=== PATIENT | male | born 1980 | race Caucasian/White ===

== ENCOUNTER 2023-01-23 10:10 | Outpatient (CLI) | payer OTHER, SELFPAY | END 2023-01-23 10:11 | disposition home or self-care (01) | PROVIDERS: PCP Family Medicine; Visit Provider Family Medicine | DX: R10.9 Unspecified abdominal pain (principal); I10 Essential (primary) hypertension; Z13.6 Encounter for screening for cardiovascular disorders | CPT/HCPCS: 80048; 80061 ==

== ENCOUNTER 2023-07-03 08:01 | Outpatient (CLI) | payer OTHER, SELFPAY ==
--- NOTE | 2023-07-03 09:35 | W.ANESCHARGE ---
Anesthesia Charges Start Date/Time Anesthesia Start Date: 07/03/23 Anesthesia Start Time: 08:56 Stop Date/Time Anesthesia Stop Date: 07/03/23 Anesthesia Stop Time: 09:30
--- NOTE | 2023-07-03 10:10 | W.ANESCHARGE ---
Anesthesia Charges Start Date/Time Anesthesia Start Date: 07/03/23 Anesthesia Start Time: 08:56 Stop Date/Time Anesthesia Stop Date: 07/03/23 Anesthesia Stop Time: 09:30
== END 2023-07-03 08:02 | disposition home or self-care (01) ==
LOC: OP CLINIC 08:02
PROVIDERS: PCP Family Medicine; Visit Provider Internal Medicine
DX: Z12.11 Encounter for screening for malignant neoplasm of colon (principal); K63.5 Polyp of colon; K62.89 Other specified diseases of anus and rectum
CPT/HCPCS: 00811; 45380; 45385; 88305; J2704

== ENCOUNTER 2024-06-20 11:08 | Outpatient (CLI) | payer OTHER, SELFPAY | END 2024-06-20 11:09 | disposition home or self-care (01) | PROVIDERS: PCP Family Medicine; Visit Provider Family Medicine | DX: R10.11 Right upper quadrant pain (principal) | CPT/HCPCS: 80053; 83690 ==

== ENCOUNTER 2024-06-23 15:35 | Outpatient (CLI) | payer OTHER, SELFPAY ==
--- NOTE | 2024-06-23 16:00 | CRLHL7_ITS ---
For Patients: As a result of the Century Cures Act, medical imaging exams and procedure reports are released immediately into your electronic medical record. You may view this report before your referring provider. If you have questions, please contact your health care provider. INDICATION: Right upper quadrant pain COMPARISON: none TECHNIQUE: Real time snow scale imaging and color Doppler analysis was performed of the right upper quadrant. FINDINGS: The patient`s liver is of normal size and has uniform echogenicity. There is a normal appearance of the hepatic IVC and proximal abdominal aorta. There is no evidence of ascites. The gallbladder is of normal size and there is no evidence of intraluminal stones or sludge. The gallbladder wall measures 2 mm in thickness. The common bile duct is of normal size and measures 4.9 mm in diameter at the level of the david hepatis. The pancreas appears normal. There is no evidence of a stone or hydronephrosis within the right kidney. The right kidney measures 11.1 cm in length. IMPRESSION: Normal right upper quadrant ultrasound. Dictated by Wei Edmonds MD @ 06/26/2024 9:16:25 PM (Electronically Signed)
== END 2024-06-23 15:36 | disposition home or self-care (01) ==
PROVIDERS: PCP Family Medicine; Visit Provider Family Medicine
DX: R10.11 Right upper quadrant pain (principal)
CPT/HCPCS: 76705

== ENCOUNTER 2025-03-28 10:34 | Outpatient (CLI) | payer OTHER, SELFPAY | END 2025-03-28 10:35 | disposition home or self-care (01) | LOC: LKVREF 10:36 | PROVIDERS: PCP Family Medicine; Visit Provider Family Medicine | DX: E78.1 Pure hyperglyceridemia (principal) | CPT/HCPCS: 80061 ==